=== PATIENT | male | born 1965 | race Two or more races ===

== ENCOUNTER 2022-05-22 01:22 | Emergency (ER) | payer OTHER ==
[~2022-05-22] VITALS: Ht 180.3 cm; Wt 71.2 kg
--- NOTE | 2022-05-22 01:36 | NUR ---
ARLETHA FROM [facility] C/O LOW BG 49. RECIEVED D10 FROM [facility]. PT AWAKE AND RESPONSIVE A/OX3. TOLERATING O2 3LPM VIA N/C; MO RESP DISTRESS. SAFETY MEASURES IN PLACE. CONNECTED POX AND MONITOR. SAFETY MEASURES IN PLACE.
--- NOTE | 2022-05-22 01:42 | NUR ---
STILL CLEANER TUBE AT PT'S BEDSIDE
--- NOTE | 2022-05-22 01:47 | NUR ---
GLU 112
--- NOTE | 2022-05-22 01:54 | NUR ---
PROVIDED PT WITH FOOD; WILL RECHECK BS
[2022-05-22 02:00] LABS: BASOPHILS % (AUTO) 0.1 % (0.0-2.0); EOSINOPHILS % (AUTO) 0.5 % (0.0-6.0); HEMATOCRIT 38 % (39-51); HEMOGLOBIN 12.3 g/dL (13.5-17.5); LYMPHOCYTES # (AUTO) 1.4 K/uL (0.8-4.8); LYMPHOCYTES % (AUTO) 9.3 % (20.0-44.0); MEAN CORPUSCULAR HGB CONC 33 g/dl (31.0-36.0); MEAN CORPUSCULAR VOLUME 92 fL (80-96); MONOCYTES # (AUTO) 0.8 K/uL (0.1-1.30); MONOCYTES % (AUTO) 5.3 % (2.0-12.0); NEUTROPHILS # (AUTO) 12.5 K/uL (1.8-8.9); NEUTROPHILS % (AUTO) 84.8 % (43.0-81.0); PLATELET COUNT (AUTO) 191 K/uL (150-450); RED BLOOD CELL COUNT(AUTO) 4.07 MIL/uL (4.5-6.0); WHITE BLOOD COUNT (AUTO) 14.7 K/uL (4.3-11.0)
[2022-05-22 02:20] LABS: CALCIUM, SERUM 8.5 mg/dL (8.5-10.1); CREATININE 1.9 mg/dL (0.6-1.3); POTASSIUM 3.4 mmol/L (3.5-5.1)
--- NOTE | 2022-05-22 03:17 | NUR ---
URINE COLLECTED AND SENT TO LAB
[2022-05-22 03:59] LABS: BILIRUBIN,URINE NEGATIVE (NEGATIVE); COLOR,URINE YELLOW (YELLOW); LEUKOCYTE ESTERASE ,URINE NEGATIVE (NEGATIVE); NITRITE, URINE POSITIVE (NEGATIVE); PH,URINE 5.5 (5.0-8.0); PROTEIN,URINE TRACE mg/dl (NEGATIVE); UGLUCOSE NEGATIVE (NEGATIVE); UROBILINOGEN,URINE 0.2 EU/dL (0.2)
[2022-05-22 04:36] LABS: BACTERIA,URINE Rare /HPF (None Seen); SQUAMOUS EPITHELIAL CELL,UR Many /HPF (None Seen); WBC,URINE 0-2 /HPF (0-3)
[2022-05-22] MEDS ORDERED: CEPH500C2 PO (04:52)
[2022-05-22] MEDS ORDERED: CEPHALEXIN MONOHYDRATE 500 MG CAPSULE PO ONE ×2 (04:57→05:00)
--- NOTE | 2022-05-22 05:57 | NUR ---
CALLED [facility] FOR TRANSPORTATION ETA 1 HOUR
--- NOTE | 2022-05-22 06:05 | NUR ---
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 [phone] FAXED RESULTS AND D/C PAPERWORK
--- NOTE | 2022-05-22 07:47 | NUR ---
REPORT GIVEN TO [facility], PT TRASNPORTED BACK TO [facility] IN STABLE CONDITION. ATTEMPTED TO CALL [facility] AGAIN TO GIVE REPORT, NO RESPONSE.
[2022-05-22 07:49] VITALS: BP 123/66
== END 2022-05-22 07:49 | disposition home or self-care (01) ==
LOC: ER 01:25
DX: N39.0 Urinary tract infection, site not specified (principal); E16.2 Hypoglycemia, unspecified; Z79.899 Other long term (current) drug therapy
CPT/HCPCS: 36415; 80048-TC; 81001; 82962-TC; 85025-TC; 87086-TC